=== PATIENT | male | born 1965 | race Caucasian/White ===

== ENCOUNTER 2018-08-20 10:43 | Inpatient (IN) | payer OTHER ==
[~2018-08-20] VITALS: Ht 185.4 cm; Wt 128.4 kg
[2018-08-20] VITALS (14 sets, daily range): BP systolic 76–155; BP diastolic 46–90
[2018-08-20] MEDS ORDERED: IRON325 PO (10:54)
[2018-08-20] MEDS ORDERED: CLARITIN10 MG PO (10:54)
[2018-08-20] MEDS ORDERED: VITAMIN B-12500 MCG PO (10:54)
[2018-08-20] MEDS ORDERED: TESTOSTERO30 MG/1.5 IM (10:55)
[2018-08-20] MEDS ORDERED: ANASTROZOLE1 MG PO (10:56)
[2018-08-20 11:15] LABS: ABSOLUTE BASOPHILS 0.2 thou/uL (0.0-0.2); ABSOLUTE LYMPHOCYTES 1.6 thou/uL (0.8-5.3); ABSOLUTE MONOCYTES 0.7 thou/uL (0.0-1.2); ABSOLUTE NEUTROPHILS 10.9 thou/uL (1.6-8.1); BASOPHILS 1.3 %; EOSINOPHILS 0.4 %; HEMATOCRIT 42.1 % (42.0-52.0); HEMOGLOBIN 13.2 gm/dL (14.0-18.0); LYMPHOCYTES 11.9 %; MCH 23.4 pg (26.0-34.0); MCHC 31.4 g/dL (28.0-37.0); MCV 74.3 fL (80.0-100.0); MONOCYTES 5.3 %; MPV 7.5 fl. (7.2-11.1); NUCLEATED RBCS 0 /100WBC; PLATELET COUNT* 377 thou/uL (150-400); POLYS 81.1 %; RBC 5.66 mil/uL (4.50-6.00); RDW-CV 22.5 % (10.5-14.5); WBC 13.4 thou/uL (4.0-11.0)
[2018-08-20 11:25] LABS: APTT 39.6 Seconds (25.0-31.3); INR 1.1; PROTIME 10.9 Seconds (9.20-11.50)
[2018-08-20 11:26] LABS: CALCIUM 8.6 mg/dL (8.5-10.1); POTASSIUM 3.8 mmol/L (3.5-5.1)
[2018-08-20 11:34] LABS: ALBUMIN 3.7 g/dL (3.4-5.0); TOTAL BILIRUBIN 1.2 mg/dL (<0.1-1.0); TOTAL PROTEIN 7.2 g/dL (6.4-8.2)
[2018-08-20 12:00] LABS: ANISOCYTOSIS 2+; HYPOCHROMASIA 1+; MICROCYTES 1+; OVALOCYTES 1+
[2018-08-20 14:18] LABS: ABSOLUTE BASOPHILS 0.2 thou/uL (0.0-0.2); ABSOLUTE EOSINOPHILS 0.1 thou/uL (0.0-0.7); ABSOLUTE LYMPHOCYTES 2.6 thou/uL (0.8-5.3); ABSOLUTE MONOCYTES 0.9 thou/uL (0.0-1.2); ABSOLUTE NEUTROPHILS 11.5 thou/uL (1.6-8.1); BASOPHILS 1.1 %; EOSINOPHILS 0.4 %; HEMATOCRIT 32.8 % (42.0-52.0); LYMPHOCYTES 16.9 %; MCH 23.4 pg (26.0-34.0); MCHC 31.4 g/dL (28.0-37.0); MCV 74.6 fL (80.0-100.0); MONOCYTES 6.1 %; MPV 7.4 fl. (7.2-11.1); NUCLEATED RBCS 0 /100WBC; PLATELET COUNT* 380 thou/uL (150-400); POLYS 75.5 %; RDW-CV 22.5 % (10.5-14.5); WBC 15.3 thou/uL (4.0-11.0)
[2018-08-20 14:22] LABS: HEMOGLOBIN 10.3 gm/dL (14.0-18.0)
--- NOTE | 2018-08-20 15:32 | EKG ---
[place] [address] ELECTROCARDIOGRAM REPORT Name: MIGUELITO MAHMOOD Room: [place] [address] ADM IN .R.#: [id number] Admission: 08/20/18 Attend Phys: Juan Pablo Davis Discharge: Date of : 65 Report #: [id number] THIS REPORT FOR: //name// [facility] ED Test Date: 2018-08-20 Test Time: 11:18:41 Pat Name: MIGUELITO MAHMOOD Department: Room: [facility] Gender: M Hook And Eye Machine Operator: Jake MCRAE : 1965 Requested By: Matt Simon Order Number: [id number] MD: Surjit Goode Measurements Intervals [place] Rate: 82 P: 23 [place]: 136 QRS: -36 QRSD: 95 T: 73 QT: 338 QTc: 395 Interpretive Statements Sinus rhythm Abnormal R-wave progression, late transition LVH with secondary repolarization abnormality No previous ECG available for comparison Electronically Signed On 08-20-2018 15:32:11 CDT by Surjit Goode [email or web address] <ELECTRONICALLY SIGNED> By: Surjit Goode MD, FAC 08/20/18 1532 1118 [id number] Surjit Goode MD, [facility] /EPI
--- NOTE | 2018-08-20 21:00 | NUR ---
PATIENT ARRIVED ON UNIT @ 2038. DENIES PAIN, N &V. PT VS WNL. RIGHT GROIN SITE INTACT NO HEMATOMA PRESENT. PEDAL PULSES 2+ BILATERAL. SENSATION INTACT. PT IS TO HO LEG STRAIGHT FOR 2 HOURS. WILL MONITOR VS CLOSELY. NO FURTHER CONCERNS AT THIS TIME.
[2018-08-20 21:03] LABS: HEMATOCRIT 30.3 % (42.0-52.0); HEMOGLOBIN 9.8 gm/dL (14.0-18.0)
--- NOTE | 2018-08-20 22:30 | NUR ---
CALLED HIMS D/T PT LOW BLOOD PRESSURE AND SYMPTOMATIC. PT LOOKS PALE, HE STATES HE FEELS LIGHTHEADED. HAS HAD SEVERAL LARGE SIZE LIQUID BM MOVEMENTS DARK RED COLOR. ORDERS GIVEN. ALSO CONTACTED IR HORTICULTURE PROFESSOR UPDATED ON PT CONDITION. HE AGREES WITH ORDERS GIVEN. WILL CONTINUE TO MONITOR.
[2018-08-21] VITALS (28 sets, daily range): BP systolic 85–137; BP diastolic 34–79
[2018-08-21 02:59] LABS: HEMATOCRIT 27.5 % (42.0-52.0); HEMOGLOBIN 8.7 gm/dL (14.0-18.0)
[2018-08-21 03:11] LABS: ALBUMIN 2.3 g/dL (3.4-5.0); CREATININE 1.1 mg/dL (0.6-1.3); POTASSIUM 4.2 mmol/L (3.5-5.1); TOTAL BILIRUBIN 1.9 mg/dL (<0.1-1.0); TOTAL PROTEIN 4.6 g/dL (6.4-8.2)
--- NOTE | 2018-08-21 06:00 | NUR ---
patient not progressing towards goals. he had a large liquid dark red, some gelatonious consistency bowel movement around 0400. pt stated he felt his stomach made noises and immediately had to void. he stated that his lip went numb. bp map >60. ordered a state H&H, hgb 8. pt felt better and blood pressure came up. did not require intervention at this time. orders from IR DR to keep hgb >8 transfuse one unit of blood if needed. . aware of pt BM. hannon in place. currently sleeping in bed. no further concerns at this time. will continue to monitor.
[2018-08-21 13:41] LABS: HEMATOCRIT 23.9 % (42.0-52.0); HEMOGLOBIN 7.9 gm/dL (14.0-18.0)
[2018-08-21 13:49] LABS: APTT 33.8 Seconds (25.0-31.3); INR 1.2; PROTIME 11.9 Seconds (9.20-11.50)
[2018-08-21 13:53] LABS: ALBUMIN 2.2 g/dL (3.4-5.0); CALCIUM 7.4 mg/dL (8.5-10.1); CREATININE 1.2 mg/dL (0.6-1.3); POTASSIUM 3.9 mmol/L (3.5-5.1); TOTAL BILIRUBIN 2.4 mg/dL (<0.1-1.0); TOTAL PROTEIN 4.4 g/dL (6.4-8.2)
[2018-08-21 17:56] LABS: HEMATOCRIT 16.7 % (42.0-52.0)
[2018-08-21 17:59] LABS: HEMOGLOBIN 5.5 gm/dL (14.0-18.0)
[2018-08-21 18:06] LABS: ALBUMIN 2.3 g/dL (3.4-5.0); CALCIUM 7.1 mg/dL (8.5-10.1); CREATININE 1.3 mg/dL (0.6-1.3); POTASSIUM 3.5 mmol/L (3.5-5.1); TOTAL BILIRUBIN 2.4 mg/dL (<0.1-1.0); TOTAL PROTEIN 4.5 g/dL (6.4-8.2)
[2018-08-22] VITALS (27 sets, daily range): BP systolic 85–137; BP diastolic 30–61
[2018-08-22 02:50] LABS: HEMOGLOBIN 5.7 gm/dL (14.0-18.0)
[2018-08-22 03:08] LABS: CALCIUM 6.7 mg/dL (8.5-10.1); CREATININE 1.2 mg/dL (0.6-1.3); POTASSIUM 3.4 mmol/L (3.5-5.1); TOTAL BILIRUBIN 1.8 mg/dL (<0.1-1.0); TOTAL PROTEIN 3.6 g/dL (6.4-8.2)
--- NOTE | 2018-08-22 03:16 | NUR ---
CALLED HEMATOLOGY FOR CRITICAL H&H. ORDERS TO TRANSFUSE ONE UNIT OF PRB NOW THEN DO REDRAW IN THE MORNING. WILL EVALUATE LABS AND POSSIBLY GIVE 5 UNITS OF FFP IF NEEDED. PT IS CURRENTLY SLEEPING STATED EARLIER HE FELT BETTER. STILL IS WEAK AND FATIGUED. VS WNL NO ACUTE HEMODYNAMIC CHANGES.
[2018-08-22 03:17] LABS: APTT 36.6 Seconds (25.0-31.3); INR 1.2; PROTIME 12.1 Seconds (9.20-11.50)
--- NOTE | 2018-08-22 06:40 | NUR ---
PATIENT NOT PROGRESSING TOWARDS. HE IS ORIENT X4. CONTINUES TO FEEL WEAK BUT DOES STATE HE FEELS BETTER. DENIES P&N LOW GRADE FEVERS HIGHEST 99.9. TACHY ON MONITOR. PT SOFT MAP >60. REMAINS ON ROOM AIR. PT RECIEVED COLON PREP YESTERDAY DURING ESTEFANY SHIFT. HAD TWO MODERATE LARGE SIZE LIQUID STOOLS BRIGHT RED BLOOD SOME GELATONIOUS CONSISTENCY. HEMATOLOY AND GI AWARE. PT RECIEVED 3 UNITS OF RBC PER DR. ORDER. CURRENTLY SLEEPING. WILL CONTINUE TO MONITOR.
[2018-08-22 07:59] LABS: HEMOGLOBIN 5.8 gm/dL (14.0-18.0)
--- NOTE | 2018-08-22 07:59 | NUR ---
LATE NOTE FOR DAY SHIFT 08/21/18. PT NOT PROGRESSING TOWARD GOALS. PT CONTINUES TO HAVE BLOODY STOOLS AFTER RECEIVING 5 BAGS OF FFP AND 2 UNITS OF PRBC. BLOOD APPEARS TO BE DARKER IN COLOR, NOT BRIGHT RED. SPOKE TO GI AND HEMOTOLOGY CONCERNING THE CHANGE IN COLOR. 2 UNITS OF BLOOD WAS ORDERED FOR PT TO RECEIVE. NIGHT NURSE TO ADMINISTER THE 2 UNITS. THIS NURSE WAS IN THE ROOM WHEN DR. DUNCAN WAS SPEAKING WITH PT. PT WAS TOLD THAT ONE OF THE POLYP'S CAME BACK CANCEROUS. PT TOLD THAT HIS FAMILY HAS A HISTORY OF COLON CANCER. PT WAS ABLE TO REST AFTER RECEIVING A BATH. WAS AT BEDSIDE.
[2018-08-22 08:00] LABS: HEMATOCRIT 17.6 % (42.0-52.0)
[2018-08-22 08:18] LABS: ALBUMIN 1.9 g/dL (3.4-5.0); CREATININE 1.1 mg/dL (0.6-1.3); POTASSIUM 3.2 mmol/L (3.5-5.1); TOTAL BILIRUBIN 1.7 mg/dL (<0.1-1.0); TOTAL PROTEIN 3.9 g/dL (6.4-8.2)
--- NOTE | 2018-08-22 11:16 | NUR ---
HEMOGLOBIN 5.8. DR CRISOSTOMO NOTIFIED. PREVIOUS HEMOGLOGIN 5.7. 1 UNIT OF BLOOD ORDERED. GI ASKED IF IR WILL HAVE ANY INTERVENTIONS TODAY. IR HAS NOT MADE CONTACT ABOUT ANY INTERVENTIONS TODAY. REGISTER IN CHANCERY CAME AT [address] JOHN WILL DO A COLONOSCOPY AT 1500. PT TO ATTEMPT TO HAVE AT LEAST 1/2 OF GOLYTELY BY 11AM. PER ANESTHESIA PT NEEDS TO BE NPO FOR 4 HOURS PRIOR TO SCOPE. PT EDUCATED ON PLAN. PT STATED ONCE HE GET'S FLUIDS HE WILL BE ABLE TO DRINK PREP. PT ABLE TO HAVE 480ML OF GOLYTELY UNTIL IT WAS TOO LATE TO DRINK. DURING TRANSFUSION PT REPORTED FEELING FLUSH AND HOT AFTER ABOUT 30 MINUTES OF TRANSFUSION. TEMP WITHIN NORMAL LIMITS. FAN TURNED ON. COOL WASH CLOTH APPLIED. NO HIVES, REDNESS OR SIGNS OF ADVERSE REACTION NOTED ON AT SITE OF INFUSION, CHEST, BACK OR ON BODY. AFTER A FEW MINUTES PT REPORTED SYMPTOMS HAD SUBSIDED AND TEMP 98.[address] DE LA CRUZ NOTIFIED ON UNIT PT TO HAVE COLONOSCOPY TODAY. LAB TOOK PT'S HEMOPHELIA LEVELS. CORNELL IN LAB STATED WE CAN CALL [facility] (WHERE TEST IS PREFORMED) TO RECEIVE RESULTS. THIS RN ASKED IF LAB COULD CALL THIS RN WITH RESULTS AND LAB STATED YES. HEMATOLOGY AND DR DE LA CRUZ BOTH AWARE OF THIS.
--- NOTE | 2018-08-22 12:56 | NUR ---
PT HAD 775ML OF BRIGHT RED BLOOD STOOL WITH LARGE CLOTS.
[2018-08-22 14:00] LABS: HEMATOCRIT 17.6 % (42.0-52.0)
[2018-08-22 14:03] LABS: HEMOGLOBIN 5.9 gm/dL (14.0-18.0)
[2018-08-22 14:20] LABS: ALBUMIN 1.8 g/dL (3.4-5.0); CALCIUM 6.8 mg/dL (8.5-10.1); CREATININE 1.2 mg/dL (0.6-1.3); POTASSIUM 3.5 mmol/L (3.5-5.1); TOTAL BILIRUBIN 1.5 mg/dL (<0.1-1.0); TOTAL PROTEIN 3.6 g/dL (6.4-8.2)
--- NOTE | 2018-08-22 14:40 | NUR ---
PT HAD BLOODY STOOL OF 425ML.
--- NOTE | 2018-08-22 16:48 | NUR ---
PRIOR TO 2ND UNIT OF BLOOD TEMP 99.1. HANDS EDEMATOUS 2+. DR NOTIFIED ASKED DR FOR BENADRYL AND SOLUMEDROL PRIOR TO 2ND TRANSFUSION. ORDERS RECEIVED FOR BOTH AND TO GIVE TYLENOL. ORDERS FOLLOWED. FOR EDEMATOUS HANDS, ORDER GIVEN TO CONTINUE TO MONITOR PT ESPECIALLY LUNG SOUNDS. IF PT STARTS TO SOUND WET, DR MAY GIVE LASIXS. 2ND UNIT OF BLOOD STARTED 1610 AND PT TAKEN TO COLONOSCOPY AT 1615. BLOOD TRANSFUSING IN OR. PIPE CREW FOREMAN NOTIFIED OF PT'S TEMP AND MEDICATIONS GIVEN.
--- NOTE | 2018-08-22 18:50 | NUR ---
NO BM SINCE COLONOSCOPY. VSS.
[2018-08-22 21:43] LABS: ALBUMIN 1.9 g/dL (3.4-5.0); CALCIUM 6.9 mg/dL (8.5-10.1); CREATININE 1.3 mg/dL (0.6-1.3); POTASSIUM 3.5 mmol/L (3.5-5.1); TOTAL BILIRUBIN 1.1 mg/dL (<0.1-1.0)
[2018-08-22 21:47] LABS: HEMATOCRIT 18.8 % (42.0-52.0); HEMOGLOBIN 6.3 gm/dL (14.0-18.0)
[2018-08-23] VITALS (20 sets, daily range): BP systolic 100–132; BP diastolic 40–54
--- NOTE | 2018-08-23 04:57 | NUR ---
PATIENT PROGRESSING TOWARDS GOALS. NO ACUTE HEMODYNAMIC CHANGES OVER NIGHT. PT STATES HE FEELS BETTER THEN YESTERDAY. NO LONGER TACHY. NSR ON MONITOR. CONTINUES WITH LOW GRADE FEVER HIGHEST 100.1. HAS NOT HAD A BM SINCE HE CAME BACK FROM YESTERDAY. TRANSFUSED ONE UNIT OF PACKED RBC PER HEMATOLOGY. PT ALSO RECIEVED FACTOR IX TOLERATED WELL NO REACTION. PER HEMATOLOGY THEY WANT TO KEEP Hgb above 7. PT ALSO RECIEVED 40 OF LASIX TOLERATED WELL. PT IS CURRENTLY SLEEPING NO VOICED CONCERNS AT THIS TIME. WILL CONTINUE TO MONITOR.
[2018-08-23 05:14] LABS: INR 1.2; PROTIME 11.8 Seconds (9.20-11.50)
[2018-08-23 05:59] LABS: ALBUMIN 1.8 g/dL (3.4-5.0); CALCIUM 6.8 mg/dL (8.5-10.1); CREATININE 1.1 mg/dL (0.6-1.3); POTASSIUM 3.3 mmol/L (3.5-5.1); TOTAL BILIRUBIN 1.2 mg/dL (<0.1-1.0); TOTAL PROTEIN 3.6 g/dL (6.4-8.2)
[2018-08-23 06:03] LABS: HEMOGLOBIN 6.3 gm/dL (14.0-18.0)
--- NOTE | 2018-08-23 06:15 | NUR ---
CALLED HEMATOLOGY FOR CRITICAL Hgb. waiting pension manager back.
[2018-08-23 15:22] LABS: HEMATOCRIT 20.8 % (42.0-52.0)
--- NOTE | 2018-08-23 17:21 | NUR ---
LAB ORDERED FACTOR 9 LAB FOR 0800 ON 08/24/18
--- NOTE | 2018-08-23 19:55 | NUR ---
PT ASSESSMENT CHARTED. VSS THROUGHOUT THE DAY. 1 UNIT PRBC GIVEN. FOLLOW UP HGB 7.0, THIS INFORMATION WAS RELAYED TO HEM/ONC MD AND GI MD. TELE ORDERS RECEIVED. FACTOR 9 ORDERS D/C'D 2ND DOSE OF FACTOR 9 WAS GIVEN BEFORE UPDATED FACTOR 9 LAB WAS CALLED TO UNIT. UPDATED FACTOR [address] VENTURA AND ORDERS RECEIVED TO NOT GIVE ANY MORE FACTOR [address] ANOTHER ORDER IN FOR A FACTOR 9 LEVEL IN THE MORNING. PT UP TO CHAIR FOR A FEW MINUTES TODAY. WILLS REMOVED. NO BOWEL MOVEMENT DURING SHIFT.
[2018-08-23 22:02] LABS: HEMATOCRIT 20.1 % (42.0-52.0)
[2018-08-23 22:08] LABS: HEMOGLOBIN 6.8 gm/dL (14.0-18.0); MAGNESIUM 1.7 mg/dL (1.8-2.4); POTASSIUM 3.4 mmol/L (3.5-5.1)
[2018-08-24 00:31] VITALS: BP 100/49
[2018-08-24 04:38] VITALS: BP 104/41
[2018-08-24 08:00] VITALS: BP 107/49
[2018-08-24 08:20] LABS: HEMATOCRIT 22.3 % (42.0-52.0); HEMOGLOBIN 7.4 gm/dL (14.0-18.0)
[2018-08-24 08:42] LABS: PROTIME 10.6 Seconds (9.20-11.50)
[2018-08-24 11:49] VITALS: BP 119/53
--- NOTE | 2018-08-24 12:25 | NUR ---
PT ALERT, ORIENTED AND ALL VSS ON RA. TELE TRACKING NSR. DENIES PAIN, LIGHT HEADEDNESS AND SOA. STATES HAS NOT NOTICED BLOOD IN BM SINCE SUNDAY. EDUCATED ON SAFETY AND PLAN OF CARE. CALL LIGHT IN REACH. PLEASE SEE ASSESSMENT FOR ADDITIONAL INFORMATION. WILL CONTINUE TO MONITOR.
[2018-08-24 15:35] LABS: MAGNESIUM 1.9 mg/dL (1.8-2.4); POTASSIUM 3.3 mmol/L (3.5-5.1)
[2018-08-24 16:20] VITALS: BP 111/57
--- NOTE | 2018-08-24 18:20 | NUR ---
PT REMAINS ALERT AND ORIENTED, VSS. DENIES ANY C/O. ADEQUATE UO, 1 SMALL BM-NO BLOOD SO FAR THIS SHIFT. WILL CONTINUE TO MONITOR
[2018-08-24 20:27] VITALS: BP 111/60
[2018-08-24 23:53] LABS: HEMATOCRIT 21.6 % (42.0-52.0); HEMOGLOBIN 7.3 gm/dL (14.0-18.0)
[2018-08-25] VITALS (7 sets, daily range): BP systolic 112–149; BP diastolic 41–66
--- NOTE | 2018-08-25 05:57 | NUR ---
RECEIVED REPORT AND ASSUMED CARE AT 1900. VSS. CARDIAC MONITORING IN PLACE. PT DENIES ANY COMPLAINTS OF PAIN. ASSESSMENT COMPLETED CHARTED. BED LOCKED IN LOWEST POSITION, CALL LIGHT WITHIN REACH. PT UP AD NICHOL IN ROOM, ON RA. NO ACUTE CHANGES ON THIS SHIFT. HOURLY ROUNDING COMPLETED AND ALL NEEDS MET. WILL CONTINUE TO MONITOR
[2018-08-25 06:01] LABS: HEMOGLOBIN 7.8 gm/dL (14.0-18.0)
--- NOTE | 2018-08-25 09:04 | NUR ---
PT ALERT, ORIENTED AND ALL VSS ON RA. TELE TRACKING NSR. DENIES PAIN, DIZZINESS/LIGHT HEADEDNESS AND SOA. DENIES BLOODY BM. CALL LIGHT IN REACH. EDUCATED ON SAFETY AND PLAN OF CARE. PLEASE SEE ASSESSMENT FOR ADDITIONAL INFORMATION. WILL CONTINUE TO MONITOR.
--- NOTE | 2018-08-25 17:59 | NUR ---
PT ALERT, ORIENTED AND ALL VSS. CONTINUES TO DENY ANY C/O AND IS LOOKING FORWARD TO DC TOMORROW. WILL CONTINUE TO MONITOR
--- NOTE | 2018-08-25 20:00 | NUR ---
RECEIVED REPORT AND ASSUMED CARE OF PT, ASSESSMENT COMPLETED. DISCUSSED DISCHARGE IN AM IF LABS COME BACK OKAY. TELEMETRY ON SHOWING SR. NO COMPLAINTS VOICED. WILL CONT TO MONITOR AND ASSIST NEEDED.
[2018-08-26 03:48] VITALS: BP 118/59
[2018-08-26 05:31] LABS: HEMATOCRIT 22.1 % (42.0-52.0); HEMOGLOBIN 7.5 gm/dL (14.0-18.0)
--- NOTE | 2018-08-26 06:37 | NUR ---
SLEPT WELL TONIGHT. GAIT STEADY TO AND FROM BR. NO CHANGE IN ASSESSMENT. TELEMETRY CONT TO SHOW SR. HOURLY ROUNDING OBSERVED. HS GOALS OF REST AND SAFETY ACHIEVED.
[2018-08-26 07:30] VITALS: BP 124/67
--- NOTE | 2018-08-26 11:22 | CON ---
[address] [address] CONSULTATION Name: ELAMIGUELITO N Room: [address] IN M.R.#: [id number] Admission: 08/20/18 Attend Phys: Juan Pablo Davis Discharge: Date of : 65 Report #: [id number] THIS REPORT FOR: //name// CC: Devan Montalvo HISTORY OF PRESENT ILLNESS: This is a very pleasant 53-year-old male with past medical history significant for colonic polyps and hemophilia B who is presenting with hematochezia. The patient was initially seen in our outpatient clinic for evaluation of iron deficiency anemia. The patient's father was diagnosed with colon cancer with liver mets at the age of 56. The patient had his initial colonoscopy in 2000 where polyps were detected and they were removed. At that time, the patient had to stay overnight in the hospital because of post-polypectomy bleeding. The patient deferred his subsequent colonoscopies due to the fear of bleeding, but he had presented to us for iron deficiency anemia. At the time of presentation, the patient's hemoglobin was 10. The patient underwent elective outpatient colonoscopy by Dr. Kinsey at [facility] yesterday and several polyps were removed. A large pedunculated polyp was noted in the rectosigmoid area and a flat sessile polyp was noted in the cecal region. The pedunculated polyp from the rectosigmoid area was positive for adenocarcinoma, but was removed with a clear margin. The patient began experiencing episodes of hematochezia few hours after the colonoscopy when he was instructed to present to the hospital. On presentation, the patient had a CT scan, which suggested active extravasation of blood from the right side of the colon and the patient underwent IR-guided embolization. He has since been admitted to the ICU for continued monitoring. The patient had several episodes of hematochezia over the course of his ICU stay, but his last episode did not show any fresh blood and appeared to contain dark red clots. The patient denies any significant abdominal pain, nausea, vomiting, fever or chills. PAST MEDICAL HISTORY: The patient has a history of gallstones in the past, but has never had a cholecystectomy. PAST SURGICAL HISTORY: The patient has had no anal surgeries apart from colonoscopy. SOCIAL HISTORY: The patient denies smoking, alcohol or recreational drug use. FAMILY HISTORY: As mentioned above. The patient's father was diagnosed with colon cancer at the age of 56. REVIEW OF SYSTEMS: A comprehensive 14-point review of systems is negative except for [place] [address] CONSULTATION Name: MIGUELITO MAHMOOD David Room: [address]#: [id number] Admission: 08/20/18 Attend Phys: Juan Pablo Davis Discharge: Date of : 65 Report #: [id number] PHYSICAL EXAMINATION: VITAL SIGNS: Temperature afebrile, pulse rate 97, respirations 15, blood pressure 129/43, pulse ox 97%. GENERAL: The patient is alert, awake, oriented times 3. HEENT: Pupils are equal, round, reactive to light and accommodation. Mucous membranes are moist. There is no congestion. CARDIOVASCULAR: Rate and rhythm regular. S1, S2 present. LUNGS: Clear to auscultation bilaterally. ABDOMEN: Soft. There is no distention, no tenderness, no guarding or rigidity. EXTREMITIES: Warm, well perfused. There is no edema. LABORATORY DATA: Hemoglobin 7.9, hematocrit 23.9, sodium 139, potassium 3.5, chloride 105, bicarbonate 26, BUN 15, creatinine 1.3, AST 15, ALT 18, alkaline phosphatase 28, total bilirubin 2.4. INR 1.2, PTT 32.2. IMAGING DATA: Angiography: Active extravasation seen in the renal cecum. It was successfully embolized with several endovascular coils, active bleeding seen in the region of rectum. ASSESSMENT AND PLAN: This is a very pleasant 53-year-old male with past medical history significant for hemophilia who is presenting with post-polypectomy bleeding after several large polyps were removed from his colon on elective basis day before yesterday. Due to the patient's hemophilia, he is at increased risk for bleeding from even a regular colonoscopy. Therefore, we would like to defer this procedure unless absolutely necessary. The patient has received several units of fresh frozen plasma and hemoglobin and would continue to transfuse him as necessary. Continue to place the patient on a clear liquid diet and monitor hemoglobin at least every 6 hours. I appreciate the hematology input and will continue to follow closely. Due to the diagnosis of adenocarcinoma in one of the polyps, the patient will require outpatient colonoscopy in 6 months followed by 1-year, 3-year, and 5-year intervals. <ELECTRONICALLY SIGNED> By: Jose Chamorro MD 08/26/18 1122 [id number] Chamorro MD /nt
[2018-08-26 11:49] VITALS: BP 124/67
--- NOTE | 2018-08-26 12:59 | NUR ---
ASSESSMENT COMPLETED REFER TO COMPUTER CHARTING. MERCHANDISE FLOW MANAGER TRACKING SR. PATIENT REPORTING NO PAIN, NAUSEA OR SHORTNESS OF BREATH. BED IN LOW AND LOCKED POSITION. CALL LIGHT WITHIN REACH. FAMILY AT BEDSIDE. IV AND MERCHANDISE FLOW MANAGER DISCONTINUED AND REMOVED. ALL PERSONAL BELONGINGS SENT WITH PATIENT. PATIENT WALKED TO THE FRONT DOORS WITH NURSING STAFF.
== END 2018-08-26 13:11 | disposition home or self-care (01) | DRG 377 ==
LOC: M.ERS 10:43 → M.ICU 12:16 → M.TBA-ER 12:16 → M.ICU 19:00 → M.2W 08-23 20:54
PROVIDERS: Family Medicine; Internal Medicine Gastroenterology; Internal Medicine Hematology & Oncology; Radiology Diagnostic Radiology; ADMIT Internal Medicine
PROC: B4141ZZ Fluoroscopy of Superior Mesenteric Artery using Low Osmolar Contrast (ICD-10-PCS; principal; 2018-08-20)
PROC: B41F1ZZ Fluoroscopy of Right Lower Extremity Arteries using Low Osmolar Contrast (ICD-10-PCS; principal; 2018-08-20)
PROC: 30233N1 Transfusion of Nonautologous Red Blood Cells into Peripheral Vein, Percutaneous Approach (ICD-10-PCS; principal; 2018-08-20)
PROC: B4151ZZ Fluoroscopy of Inferior Mesenteric Artery using Low Osmolar Contrast (ICD-10-PCS; principal; 2018-08-20)
PROC: 30233K1 Transfusion of Nonautologous Frozen Plasma into Peripheral Vein, Percutaneous Approach (ICD-10-PCS; 2018-08-22)
PROC: 0W3P8ZZ Control Bleeding in Gastrointestinal Tract, Via Natural or Artificial Opening Endoscopic (ICD-10-PCS; 2018-08-22)
PROC: 3E0H8GC Introduction of Other Therapeutic Substance into Lower GI, Via Natural or Artificial Opening Endoscopic (ICD-10-PCS; 2018-08-22)
DX: K62.5 Hemorrhage of anus and rectum (principal); D67 Hereditary factor IX deficiency; D62 Acute posthemorrhagic anemia; I95.9 Hypotension, unspecified; Z80.0 Family history of malignant neoplasm of digestive organs; Z90.49 Acquired absence of other specified parts of digestive tract; Z79.899 Other long term (current) drug therapy

== ENCOUNTER → 2019-04-04 | Day surgery (SDC) | payer OTHER ==
[~2019-04-04] MED LIST: ANASTROZOLE1 MG PO; CLARITIN10 MG PO; IRON325 PO; TESTOSTERO30 MG/1.5 IM; VITAMIN B-12500 MCG PO
--- NOTE | ~2019-04-04 | PROC ---
[address] [address] PROCEDURE REPORT Name: MIGUELITO MAHMOOD Room: [facility].#: [id number] Admission: 04/04/19 Attend Phys: Devan Manrique MD Discharge: Date of : 65 Report #: [id number] THIS REPORT FOR: //name// For GI report, please see the Provation report in Perceptive 7 content. By: 0702Medical Records Staff FEL[place] /GEORGE
[2019-04-04 09:24] LABS: HEMATOCRIT 52.8 % (42.0-52.0); HEMOGLOBIN 18.5 gm/dL (14.0-18.0); MCH 32.3 pg (26.0-34.0); MCV 92.1 fL (80.0-100.0); MPV 7.6 fl. (7.2-11.1); RBC 5.73 mil/uL (4.50-6.00); RDW-CV 13.8 % (10.5-14.5); WBC 10.4 thou/uL (4.0-11.0)
[2019-04-04 09:32] LABS: CALCIUM 8.8 mg/dL (8.5-10.1)
[2019-04-04 09:42] LABS: ALBUMIN 3.9 g/dL (3.4-5.0); TOTAL BILIRUBIN 1.7 mg/dL (<0.1-1.0); TOTAL PROTEIN 7.4 g/dL (6.4-8.2)
--- NOTE | 2019-04-04 11:21 | EKG ---
[place] [address] ELECTROCARDIOGRAM REPORT Name: MIGUELITO MAHMOOD Room: [facility]#: [id number] Admission: 04/04/19 Attend Phys: Devan Manrique MD Discharge: Date of : 65 Report #: [id number] THIS REPORT FOR: //name// [facility] Test Date: 2019-04-04 Test Time: 09:19:12 Pat Name: MIGUELITO MAHMOOD Department: Room: Gender: M Technical Translator: [facility] : 1965 Requested By: Devan Manrique Order Number: [id number] Reading MD: Tuan Mckeon Measurements Intervals [place] Rate: 65 P: 28 CT: 145 QRS: -37 QRSD: 99 T: 56 QT: 377 QTc: 392 Interpretive Statements Sinus rhythm Left axis deviation Borderline ST elevation, anterior leads Compared to ECG 08/20/2018 11:18:41 Left ventricular hypertrophy no longer present Electronically Signed On 04-04-2019 11:21:30 CDT by Tuan Mckeon [email or web address] <ELECTRONICALLY SIGNED> By: Tuan Mckeon MD, [facility] 04/04/19 112 8 8 Tuan Mckeon MD, [facility] /EPI
--- NOTE | 2019-04-09 16:01 | PATH ---
[facility] [address] [place] [address] PATHOLOGY RPT PROCEDURE Name: ZHENG MAHMOOD Room: [facility].#: [id number] Admission: 04/04/19 Date of : 65 Discharge: Report #: [id number] Path Case #: [id number] [facility] Accession Number: [id number] . 01 Material submitted: . PART A: hepatic flexure - HEPATIC FLEXURE POLYP PART B: colon - DISTAL TRANSVERSE COLON POLYP. Modifiers: distal, transverse PART C: colon - DISTAL TRANSVERSE COLON POLYP #2. Modifiers: distal, transverse PART D: colon - SIGMOID COLON POLYP. Modifiers: sigmoid PART E: rectum - RECTUM PREVIOUS POLYPECTOMY SITE . 01 Clinical history: . Family HX colon cancer, tubulovillous adenoma polyp colon . 02 Diagnosis: A. Hepatic flexure polyp: - Tubular adenoma, negative for high-grade dysplasia. . B. Distal transverse colon polyp: - Tubular adenoma, negative for high-grade dysplasia. . C. Distal transverse colon polyp #2: - Tubular adenoma, negative for high-grade dysplasia. . D. Sigmoid colon polyp: - Tubular adenoma, negative for high-grade dysplasia. . E. Rectum previous polypectomy site: - Tubular adenoma, negative for high-grade dysplasia. (IZABEL:baltazar; 04/08/2019) QMS/04/08/2019 . 02 Electronically signed: . Toni Uribe MD, Pathologist NPI- [id number] . 01 Gross description: . A. Received in formalin labeled "Zheng Mahmood, hepatic flexure polyp," are 3 segments of silva soft tissue measuring 0.6 x 0.6 x 0.1 cm in aggregate dimensions and ranging from 0.1 to 0.3 cm in maximum dimension. The specimen is submitted entirely in cassette A1. . B. Received in formalin labeled "Zheng Mahmood, distal transverse colon polyp," is a single segment of silva soft tissue measuring 0.3 cm in maximum dimension. The specimen is entirely submitted in cassette B1[place] [address] PATHOLOGY RPT PROCEDURE Name: ZHENG MAHMOOD CELY Room: [facility].#: [id number] Admission: 04/04/19 Date of : 65 Discharge: Report #: [id number] Path Case #: [id number] C. Received in formalin labeled "Zheng Mahmood, distal transverse colon polyp 2," is a single segment of silva soft tissue measuring 0.5 cm in maximum dimension. The specimen is entirely submitted in cassette C1. . D. Received in formalin labeled "Zheng Mahmood, sigmoid colon polyp," is a single segment of silva soft tissue measuring 0.4 cm in maximum dimension. The specimen is entirely submitted in cassette D1. . E. Received in formalin labeled "Zheng Mahmood, rectum previous polypectomy," are 8 segments of silva soft tissue measuring 1.7 x 1.5 x 0.3 cm in aggregate dimensions and ranging from 0.3 to 0.5 cm in maximum dimension. The specimen is submitted entirely in cassette E1. (TSD; 04/04/2019) TOB/TOB . 02 Pathologist provided ICD-10: D12.3, D12.5, D12.8 . 02 CPT . 070012, 148329, 019729, 095175, [id number] Specimen Comment: A courtesy copy of this report has been sent to Specimen Comment: [phone], . Specimen Comment: Report sent to DR CRISOSTOMO / DR ROYAL Specimen Comment: A duplicate report has been generated due to demographic updates. Performed at: [address], [place], [place] [id number] MD Trace Muhammad MD Phone: [phone] Performed at: [facility] [address] [place], [place], [place] [id number] MD Toni Uribe MD Phone: [phone]
== END | disposition home or self-care (01) ==
LOC: M.SUR 08:25
PROVIDERS: Internal Medicine Gastroenterology
DX: Z08 Encounter for follow-up examination after completed treatment for malignant neoplasm (principal); Z86.010 Personal history of colon polyps; Z85.038 Personal history of other malignant neoplasm of large intestine; D12.5 Benign neoplasm of sigmoid colon; D12.3 Benign neoplasm of transverse colon; D12.8 Benign neoplasm of rectum; K64.8 Other hemorrhoids; D66 Hereditary factor VIII deficiency; Z79.01 Long term (current) use of anticoagulants; Z98.890 Other specified postprocedural states; Z80.0 Family history of malignant neoplasm of digestive organs

== ENCOUNTER → 2019-04-05 | Outpatient (CLI) | payer OTHER | LOC: M.INFUS 09:00 | DX: D67 Hereditary factor IX deficiency (principal) ==

== ENCOUNTER → 2019-04-06 | Outpatient (CLI) | payer OTHER | LOC: M.INFUS 08:02 | DX: D67 Hereditary factor IX deficiency (principal) ==